=== PATIENT | male | born 1935 | race Caucasian/White ===

== ENCOUNTER 2018-02-18 08:52 | Emergency (ER) | payer OTHER ==
[~2018-02-18] VITALS: Ht 172.7 cm; Wt 95.3 kg
[~2018-02-18 08:52] MED LIST: ASPI-231 PO; ESZO3TAB53 PO; LEV500T PO; MELO1TAB56 PO; OMEP20CA74 PO; SIMV-8 PO; TAM04C PO
[2018-02-18] MEDS ORDERED: ASPirin 81 mg TAB PO ONE (09:30)
[2018-02-18 09:37] LABS: Basophils # (auto) 0.1 uL; Eosinophils # (auto) 0.1 uL; Eosinophils % (auto) 1.8 % (0.0-7.0); Hematocrit 45.1 % (41.0-53.0); Hemoglobin 15.3 g/dL (13.5-17.5); Lymphocytes # (auto) 1.2 uL; Lymphocytes % (auto) 22.3 % (10.0-50.0); Mean Corpuscular Hemoglobin 29.6 pg (28.0-32.0); Mean Corpuscular Hgb Conc. 33.9 g/dL (32.0-36.0); Mean Corpuscular Volume 87.3 fL (80.0-100.0); Monocytes # (auto) 0.3 uL; Monocytes % (auto) 6.5 % (0.0-12.0); Neutrophils # (auto) 3.6 uL; Neutrophils % (auto) 68.4 % (37.0-80.0); Nucleated Red Blood Cells % 0.1 %; Platelet Count (auto) 150 10^3/uL (140-450); Red Blood Cells 5.16 10^6/uL (4.5-5.90); Red Cell Distribution Width 14.4 % (11.8-14.3); White Blood Cell 5.3 10^3/uL (4.4-10.8)
[2018-02-18 09:52] LABS: Albumin 3.9 g/dL (3.4-5.0); Anion Gap 9 (5-15); Blood Urea Nitrogen 21 mg/dL (7-18); Calcium 8.8 mg/dL (8.5-10.1); Carbon Dioxide 22 mmol/L (21-32); Chloride 106 mmol/L (98-107); Glucose 127 mg/dL (74-106); Potassium 4.2 mmol/L (3.5-5.1); Sodium 137 mmol/L (136-145)
[2018-02-18 09:57] LABS: Alanine Aminotransferase 20 U/L (16-61); Alkaline Phosphatase 62 U/L (45-117); Aspartate Aminotransferase 13 U/L (15-37); BUN/Creatinine Ratio 17.6; Bilirubin, Total 0.7 mg/dL (0.2-1.0); GFR African American 75 mL/min; GFR Non-African American 62 mL/min
[2018-02-18 09:58] LABS: INR 0.94 (0.9-1.15); Partial Thromboplastin Time 27.7 sec (23.78-33.04); Prothrombin Time 10.1 sec (9.27-12.13)
[2018-02-18] MEDS ORDERED: ONDANSETRON HCL 4 MG/2 ML VIAL IV ONE (10:00)
[2018-02-18] MEDS ORDERED: MORPHINE SULFATE 4 MG/ML SYR/VIAL IV ONE (10:00)
[2018-02-18 10:26] LABS: Urine Bacteria NONE SEEN /hpf (None Seen); Urine Blood Negative /uL (Negative); Urine Specific Gravity 1.019 (1.001-1.035); Urine WBC <1 /hpf (0 - 3)
[2018-02-18 11:40] VITALS: BP 138/73
== END 2018-02-18 11:46 | disposition home or self-care (01) ==
LOC: ER 08:52
DX: R51 Headache (principal); F41.9 Anxiety disorder, unspecified; R42 Dizziness and giddiness; F43.9 Reaction to severe stress, unspecified
CPT/HCPCS: 36415; 70450; 71045; 80053; 81001; 84484; 85025; 85610; 85730; 93005; 94761; 96374; 96375; 99285; J2270; J2405

== ENCOUNTER 2018-10-09 11:09 | Emergency (ER) | payer OTHER ==
[~2018-10-09] VITALS: Ht 172.7 cm; Wt 97.1 kg
[~2018-10-09 11:09] MED LIST changes: +AMLO5TAB13 PO; -ASPI-231 PO; +CINN500C7 PO; -ESZO3TAB53 PO; +GABA300C10 PO; -LEV500T PO; -MELO1TAB56 PO; +NAP500T PO; +OMEGCAP2 PO; +PRI50T PO; +TURM500C3 PO
[2018-10-09 12:08] LABS: Basophils # (auto) 0.1 uL; Eosinophils # (auto) 0.1 uL; Hemoglobin 11.1 g/dL (13.5-17.5); Lymphocytes # (auto) 0.9 uL; Mean Corpuscular Hemoglobin 26.1 pg (28.0-32.0); Monocytes # (auto) 0.7 uL; Neutrophils # (auto) 4.5 uL; White Blood Cell 6.2 10^3/uL (4.4-10.8)
[2018-10-09 12:13] LABS: Basophils % (auto) 0.9 % (0.0-2.0); Eosinophils % (auto) 0.9 % (0.0-7.0); Hematocrit 34.5 % (41.0-53.0); Lymphocytes % (auto) 14.5 % (10.0-50.0); Mean Corpuscular Hgb Conc. 32.1 g/dL (32.0-36.0); Mean Corpuscular Volume 81.3 fL (80.0-100.0); Monocytes % (auto) 10.6 % (0.0-12.0); Neutrophils % (auto) 73.1 % (37.0-80.0); Nucleated Red Blood Cells % 0.1 %; Platelet Count (auto) 355 10^3/uL (140-450); Red Blood Cells 4.24 10^6/uL (4.5-5.90); Red Cell Distribution Width 15.5 % (11.8-14.3)
[2018-10-09 12:16] LABS: Chloride 107 mmol/L (98-107); Potassium 4.1 mmol/L (3.5-5.1); Sodium 138 mmol/L (136-145)
[2018-10-09 12:27] LABS: Alanine Aminotransferase 13 U/L (16-61); Alkaline Phosphatase 73 U/L (45-117); Anion Gap 7 (5-15); Aspartate Aminotransferase 8 U/L (15-37); BUN/Creatinine Ratio 11.5; Bilirubin, Total 0.5 mg/dL (0.2-1.0); Blood Urea Nitrogen 11 mg/dL (7-18); Calcium 9.1 mg/dL (8.5-10.1); Carbon Dioxide 24 mmol/L (21-32); GFR African American 96 mL/min; GFR Non-African American 79 mL/min; Glucose 107 mg/dL (74-106); Total Protein 7.4 g/dL (6.4-8.2)
[2018-10-09 18:18] VITALS: BP 143/62
== END 2018-10-09 21:26 | disposition home or self-care (01) ==
LOC: ER 11:09
DX: J90 Pleural effusion, not elsewhere classified (principal); C45.7 Mesothelioma of other sites; C78.02 Secondary malignant neoplasm of left lung; E78.5 Hyperlipidemia, unspecified; I10 Essential (primary) hypertension; Z98.890 Other specified postprocedural states
CPT/HCPCS: 36415; 71046; 71250; 80053; 84484; 85025; 93005

== ENCOUNTER 2018-11-28 11:55 | Inpatient (IN) | payer OTHER | END 2018-11-29 14:25 | disposition left against medical advice (07) | LOC: ER 11:55 → TELE 11:56 → TELE-CENTR 20:39 | DX: J18.9 Pneumonia, unspecified organism (principal); J90 Pleural effusion, not elsewhere classified; C34.90 Malignant neoplasm of unspecified part of unspecified bronchus or lung; R09.02 Hypoxemia; I10 Essential (primary) hypertension ==

== ENCOUNTER 2018-11-30 07:46 | Inpatient (IN) | payer OTHER ==
[~2018-11-30] VITALS: Ht 180.3 cm; Wt 87.5 kg
[~2018-11-30 07:46] MED LIST changes: -AMLO5TAB13 PO; +AMLO5TAB15 PO; -PRI50T PO; +PRIM50TA5 PO
[2018-11-30 08:33] LABS: Basophils # (auto) 0.1 uL; Basophils % (auto) 0.8 % (0.0-2.0); Eosinophils # (auto) 0.1 uL; Hemoglobin 10.5 g/dL (13.5-17.5); Lymphocytes # (auto) 0.8 uL; Monocytes # (auto) 0.7 uL; Red Cell Distribution Width 17.9 % (11.8-14.3)
[2018-11-30 08:35] LABS: Hematocrit 32.9 % (41.0-53.0); Lymphocytes % (auto) 10.3 % (10.0-50.0); Mean Corpuscular Hemoglobin 23.2 pg (28.0-32.0); Mean Corpuscular Hgb Conc. 31.9 g/dL (32.0-36.0); Mean Corpuscular Volume 72.6 fL (80.0-100.0); Monocytes % (auto) 9.1 % (0.0-12.0); Neutrophils % (auto) 78.8 % (37.0-80.0); Platelet Count (auto) 432 10^3/uL (140-450); Red Blood Cells 4.54 10^6/uL (4.5-5.90); White Blood Cell 7.6 10^3/uL (4.4-10.8)
[2018-11-30] MEDS ORDERED: SODIUM CHLORIDE 0.9% 1,000 ML IV ONE (09:01)
[2018-11-30 09:05] LABS: Albumin 2.6 g/dL (3.4-5.0); Calcium 9.6 mg/dL (8.5-10.1); Magnesium 2.3 mg/dL (1.6-2.6)
[2018-11-30 09:10] LABS: BUN/Creatinine Ratio 14.7; Bilirubin, Total 0.5 mg/dL (0.2-1.0); Total Protein 7.8 g/dL (6.4-8.2)
[2018-11-30 09:39] LABS: INR 1.13 (0.9-1.15)
[2018-11-30] MEDS ORDERED: SERT-274 PO (14:11)
[2018-11-30] MEDS ORDERED: BUSP5TAB51 PO (14:11)
[2018-11-30] MEDS ORDERED: hydrALAZINE HCL 20 MG/ML VL IV PRN ×2 (14:15→19:15)
[2018-11-30] MEDS ORDERED: NITROGLYCERIN 0.4 MG SL TAB SL PRN (14:15)
[2018-11-30] MEDS ORDERED: MORPHINE SULF INJ 2 MG/ML SYRINGE 1ML IV PRN (14:15)
[2018-11-30 15:40] LABS: Urine Bacteria FEW /hpf (None Seen); Urine Blood Negative /uL (Negative); Urine Mucus FEW (None Seen); Urine Specific Gravity 1.023 (1.001-1.035); Urine WBC 2 /hpf (0 - 3)
[2018-11-30 17:00] VITALS: BP 143/64
[2018-11-30] MEDS ORDERED: LEVOFLOXACIN 500MG 100 ML IV ONE (19:15)
[2018-11-30] MEDS ORDERED: ALBUTEROL SULF 2.5 MG/0.5ML(0.5%) NEB SOLN NEB PRN (19:15)
[2018-11-30 22:00] VITALS: BP 139/73
[2018-11-30 22:35] VITALS: BP 139/73
[2018-12-01 05:24] VITALS: BP_SYST 131; BP_SYST 98; BP_DIAS 58
[2018-12-01 06:04] LABS: Basophils # (auto) 0.1 uL; Basophils % (auto) 0.9 % (0.0-2.0); Eosinophils # (auto) 0.1 uL; Eosinophils % (auto) 0.9 % (0.0-7.0); Hematocrit 32.2 % (41.0-53.0); Hemoglobin 10.3 g/dL (13.5-17.5); Lymphocytes # (auto) 0.9 uL; Lymphocytes % (auto) 12.5 % (10.0-50.0); Mean Corpuscular Hemoglobin 23.4 pg (28.0-32.0); Mean Corpuscular Hgb Conc. 31.8 g/dL (32.0-36.0); Mean Corpuscular Volume 73.5 fL (80.0-100.0); Monocytes # (auto) 0.6 uL; Monocytes % (auto) 8.8 % (0.0-12.0); Neutrophils # (auto) 5.6 uL; Neutrophils % (auto) 76.9 % (37.0-80.0); Platelet Count (auto) 441 10^3/uL (140-450); Red Blood Cells 4.38 10^6/uL (4.5-5.90); Red Cell Distribution Width 17.7 % (11.8-14.3); White Blood Cell 7.3 10^3/uL (4.4-10.8)
[2018-12-01 06:12] LABS: BUN/Creatinine Ratio 15.8; Calcium 9.9 mg/dL (8.5-10.1); Potassium 4.3 mmol/L (3.5-5.1)
[2018-12-01 09:15] VITALS: BP 137/71
[2018-12-01] MEDS: LEVOFLOXACIN 500MG 100 ML IV SCH (09:50)
[2018-12-01] MEDS: SODIUM FERR GLUC 62.5MG/5ML 125 MG in SODIUM CHL 0.9% 100 ML IV SCH (12:30)
[2018-12-01 13:00] VITALS: BP 141/72
[2018-12-01 14:06] LABS: INR 1.15 (0.9-1.15); Partial Thromboplastin Time 36.9 sec (23.64-32.05)
[2018-12-01] MEDS ORDERED: LORazepam 2MG/ML-1ML VIAL IV PRN ×2 (16:45→19:00)
[2018-12-01] MEDS ORDERED: LORazepam 2MG/ML-1ML VIAL IV ONE (16:45)
[2018-12-01 17:18] VITALS: BP 148/72
[2018-12-01] MEDS ORDERED: LIDOCAINE 1% (LOCAL ANESTH.) PF 5ml SDV ID ONE (18:15)
[2018-12-01 19:43] LABS: Cholesterol 113 mg/dL (< 200); Triglycerides 124 mg/dL (< 150)
[2018-12-01 19:45] LABS: HDL Cholesterol 28 mg/dL (40-59); LDL Cholesterol 76 mg/dL (< 100)
[2018-12-01] MEDS: ZOLPIDEM TARTRATE 5 MG TAB PO PRN (20:59)
[2018-12-01] MEDS: ATORVASTATIN 20 MG TAB PO SCH (21:00)
[2018-12-01 21:52] VITALS: BP 136/78
[2018-12-01] MEDS ORDERED: PRIMIDONE 50 MG TAB PO SCH (22:00)
[2018-12-01] MEDS: SODIUM CHLOR 0.9% PF (SALINE LOCK) 10ML VIAL/SYR IV SCH (22:00)
[2018-12-02 02:40] VITALS: BP 146/77
[2018-12-02 05:39] VITALS: BP 144/85
[2018-12-02 09:00] VITALS: BP 118/64
[2018-12-02] MEDS: LEVOFLOXACIN 500MG 100 ML IV SCH (10:25)
[2018-12-02] MEDS: SODIUM CHLOR 0.9% PF (SALINE LOCK) 10ML VIAL/SYR IV SCH ×2 (10:25→21:23)
[2018-12-02] MEDS: ASPirin 81 mg TAB PO SCH (10:25)
[2018-12-02 13:00] VITALS: BP 122/67
[2018-12-02] MEDS: SODIUM FERR GLUC 62.5MG/5ML 125 MG in SODIUM CHL 0.9% 100 ML IV SCH (13:05)
[2018-12-02 17:00] VITALS: BP 128/66
[2018-12-02] MEDS ORDERED: GABAPENTIN 300 MG CAP PO ONE (19:45)
[2018-12-02] MEDS ORDERED: SERTRALINE HCL 50 MG TAB PO ONE (19:45)
[2018-12-02] MEDS: ZOLPIDEM TARTRATE 5 MG TAB PO PRN (21:23)
[2018-12-02] MEDS: ATORVASTATIN 20 MG TAB PO SCH (21:23)
[2018-12-02] MEDS: PRIMIDONE 50 MG TAB PO SCH (21:24)
[2018-12-02 23:08] VITALS: BP 129/68
[2018-12-03 05:17] VITALS: BP 110/51
[2018-12-03 06:54] LABS: Basophils # (auto) 0.1 uL; Eosinophils # (auto) 0.1 uL; Eosinophils % (auto) 0.9 % (0.0-7.0); Lymphocytes # (auto) 0.9 uL; Monocytes # (auto) 0.8 uL; Red Cell Distribution Width 17.6 % (11.8-14.3)
[2018-12-03 06:56] LABS: Basophils % (auto) 0.8 % (0.0-2.0); Hemoglobin 10.4 g/dL (13.5-17.5); Lymphocytes % (auto) 11.7 % (10.0-50.0); Mean Corpuscular Hemoglobin 22.9 pg (28.0-32.0); Mean Corpuscular Hgb Conc. 31.4 g/dL (32.0-36.0); Monocytes % (auto) 10.4 % (0.0-12.0); Neutrophils % (auto) 76.2 % (37.0-80.0); Platelet Count (auto) 439 10^3/uL (140-450); Red Blood Cells 4.52 10^6/uL (4.5-5.90); White Blood Cell 7.9 10^3/uL (4.4-10.8)
[2018-12-03 06:57] LABS: Potassium 3.8 mmol/L (3.5-5.1)
[2018-12-03 07:03] LABS: BUN/Creatinine Ratio 16.3; Calcium 9.8 mg/dL (8.5-10.1)
[2018-12-03 09:00] VITALS: BP 131/64
[2018-12-03] MEDS: LEVOFLOXACIN 500MG 100 ML IV SCH (10:06)
[2018-12-03] MEDS: GABAPENTIN 300 MG CAP PO SCH (10:07)
[2018-12-03] MEDS: ASPirin 81 mg TAB PO SCH (10:07)
[2018-12-03] MEDS: PRIMIDONE 50 MG TAB PO SCH ×2 (10:07→21:38)
[2018-12-03] MEDS: SERTRALINE HCL 50 MG TAB PO SCH (10:07)
[2018-12-03] MEDS: SODIUM CHLOR 0.9% PF (SALINE LOCK) 10ML VIAL/SYR IV SCH ×2 (10:08→21:38)
[2018-12-03 13:00] VITALS: BP 110/68
[2018-12-03] MEDS: SODIUM FERR GLUC 62.5MG/5ML 125 MG in SODIUM CHL 0.9% 100 ML IV SCH (13:00)
[2018-12-03 17:00] VITALS: BP 137/65
[2018-12-03 21:00] VITALS: BP 137/65
[2018-12-03] MEDS: ZOLPIDEM TARTRATE 5 MG TAB PO PRN (21:38)
[2018-12-03] MEDS: ATORVASTATIN 20 MG TAB PO SCH (21:38)
[2018-12-03 23:49] VITALS: BP 132/61
[2018-12-04 05:05] VITALS: BP 134/63
[2018-12-04] MEDS ORDERED: MIDAZOLAM HCL 1MG/1ML-2 ML VIAL IV ONE (07:45)
[2018-12-04] MEDS ORDERED: LIDOCAINE VISCOUS 2% 15ML UD MT ONE (07:45)
[2018-12-04] MEDS ORDERED: fentaNYL CITRATE 100 MCG/2 ML VL IV ONE (07:45)
[2018-12-04 08:05] LABS: Basophils # (auto) 0.1 uL; Basophils % (auto) 0.9 % (0.0-2.0); Eosinophils # (auto) 0.1 uL; Eosinophils % (auto) 1.1 % (0.0-7.0); Lymphocytes # (auto) 0.9 uL; Monocytes # (auto) 0.8 uL
[2018-12-04 08:08] LABS: Hematocrit 32.3 % (41.0-53.0); Hemoglobin 10.1 g/dL (13.5-17.5); Lymphocytes % (auto) 12.6 % (10.0-50.0); Mean Corpuscular Hgb Conc. 31.4 g/dL (32.0-36.0); Mean Corpuscular Volume 73.1 fL (80.0-100.0); Neutrophils # (auto) 5.5 uL; Neutrophils % (auto) 74.4 % (37.0-80.0); Nucleated Red Blood Cells % 0.1 %; Platelet Count (auto) 409 10^3/uL (140-450); Red Blood Cells 4.41 10^6/uL (4.5-5.90); Red Cell Distribution Width 17.6 % (11.8-14.3); White Blood Cell 7.4 10^3/uL (4.4-10.8)
[2018-12-04 08:18] LABS: Potassium 3.8 mmol/L (3.5-5.1)
[2018-12-04 08:28] LABS: BUN/Creatinine Ratio 22.2
[2018-12-04 08:31] LABS: Calcium 6.3 mg/dL (8.5-10.1)
[2018-12-04 09:00] VITALS: BP 137/74
[2018-12-04] MEDS: GABAPENTIN 300 MG CAP PO SCH (09:58)
[2018-12-04] MEDS: LEVOFLOXACIN 500MG 100 ML IV SCH (09:58)
[2018-12-04] MEDS: SERTRALINE HCL 50 MG TAB PO SCH (09:59)
[2018-12-04] MEDS: ASPirin 81 mg TAB PO SCH (09:59)
[2018-12-04] MEDS: PRIMIDONE 50 MG TAB PO SCH (09:59)
[2018-12-04] MEDS: SODIUM CHLOR 0.9% PF (SALINE LOCK) 10ML VIAL/SYR IV SCH (10:00)
[2018-12-04] MEDS: SODIUM FERR GLUC 62.5MG/5ML 125 MG in SODIUM CHL 0.9% 100 ML IV SCH (12:00)
[2018-12-04 14:02] VITALS: BP 120/59
[2018-12-04 16:48] VITALS: BP 123/69
[2018-12-04] MEDS ORDERED: LEVO500T21 PO ×2 (18:31→18:32)
[2018-12-04] MEDS ORDERED: ASPI81CH43 PO ×2 (18:31)
[2018-12-04] MEDS ORDERED: ATOR20TA50 PO ×2 (18:31)
[2018-12-04 19:37] VITALS: BP 123/69
[2018-12-04 21:00] VITALS: BP 126/71
[2019-01-01] MEDS ORDERED: ESZO3TAB53 PO (18:16)
[2019-01-01] MEDS ORDERED: GABA300C10 PO (18:16)
== END 2018-12-04 21:08 | disposition home health service (06) | DRG 64 ==
LOC: EDBD 07:46 → EDUNIT# 07:51 → ER 07:51 → TELE 07:52 → TELE-EAST 17:54
PROVIDERS: ADMIT Internal Medicine; ATTEND Internal Medicine
PROC: 02HV33Z Insertion of Infusion Device into Superior Vena Cava, Percutaneous Approach (ICD-10-PCS; principal; 2018-12-01)
PROC: B24BZZ4 Ultrasonography of Heart with Aorta, Transesophageal (ICD-10-PCS; 2018-12-04)
DX: I63.9 Cerebral infarction, unspecified (principal); J18.9 Pneumonia, unspecified organism; I21.4 Non-ST elevation (NSTEMI) myocardial infarction; J90 Pleural effusion, not elsewhere classified; E44.0 Moderate protein-calorie malnutrition; I25.3 Aneurysm of heart; J98.11 Atelectasis; Q21.1 Atrial septal defect; C34.90 Malignant neoplasm of unspecified part of unspecified bronchus or lung; D63.8 Anemia in other chronic diseases classified elsewhere; D50.9 Iron deficiency anemia, unspecified; N20.0 Calculus of kidney; D18.1 Lymphangioma, any site; Z68.26 Body mass index [BMI] 26.0-26.9, adult; E66.9 Obesity, unspecified; E78.5 Hyperlipidemia, unspecified; F17.200 Nicotine dependence, unspecified, uncomplicated; F32.9 Major depressive disorder, single episode, unspecified; G47.00 Insomnia, unspecified; H57.02 Anisocoria; R47.01 Aphasia; R48.2 Apraxia; I10 Essential (primary) hypertension; Z96.651 Presence of right artificial knee joint; I67.2 Cerebral atherosclerosis; K44.9 Diaphragmatic hernia without obstruction or gangrene; R29.810 Facial weakness; Z79.82 Long term (current) use of aspirin; Z79.899 Other long term (current) drug therapy; Z85.118 Personal history of other malignant neoplasm of bronchus and lung; Z86.73 Personal history of transient ischemic attack (TIA), and cerebral infarction without residual deficits; Z99.81 Dependence on supplemental oxygen; Z90.49 Acquired absence of other specified parts of digestive tract; Z98.49 Cataract extraction status, unspecified eye
CPT/HCPCS: 36415; 36569; 36600; 70450; 70498; 70551; 71045; 80048; 80053; 80061; 81001; 82805; 83735; 84443; 84484; 85025; 85610; 85730; 87081; 92610; 93306; 93312; 93886; 94761; 97116; 97163; 97530; G0378; J1956; J2250

== ENCOUNTER 2019-01-01 10:24 | Inpatient (IN) | payer OTHER | END 2019-01-03 18:00 | disposition home or self-care (01) | LOC: ER 10:24 → TELE-WESTW 10:25 | DX: C45.9 Mesothelioma, unspecified (principal); E43 Unspecified severe protein-calorie malnutrition; R73.9 Hyperglycemia, unspecified; D50.8 Other iron deficiency anemias; Z86.73 Personal history of transient ischemic attack (TIA), and cerebral infarction without residual deficits ==